=== PATIENT | female | born 1965 | race Caucasian/White ===

== ENCOUNTER 2024-05-07 18:16 | Outpatient (REF) | payer BC, SELFPAY ==
[2024-05-07 19:30] LABS: Absolute Basophil Count 0.06 10^3/uL (0.0-0.2); Absolute Eosinophil Count 0.08 10^3/uL (0.0-0.7); Absolute Lymphocyte Count 1.98 10^3/uL (1.2-3.4); Absolute Monocyte Count 0.46 10^3/uL (0.1-0.8); Absolute Neutrophil Count 2.56 10^3/uL (1.2-6.7); Basophils % 1.2 %; Eosinophils % 1.6 %; HCT 41.4 % (36.0-46.0); HGB 13.4 g/dL (11.2-15.7); Lymphocytes % 38.5 %; MCH 32.3 pg (27.0-33.0); MCHC 32.4 % (32.0-36.0); MCV 100 fL (80-95); MPV 10.1 fL (8.0-11.0); Monocytes % 8.9 %; Neutrophils % 49.8 %; Platelet Count 232 10^3/uL (130-400); RBC 4.15 10^6/uL (3.93-5.22); RDW 12.2 % (11.7-14.6); RDW-SD 45.1 fL; WBC 5.14 10^3/uL (4.4-10.8)
[2024-05-07 19:59] LABS: ALT 23 U/L (14-59); AST 18 U/L (15-37); Albumin 4.1 g/dL (3.4-5.0); Alkaline Phosphatase 81 U/L (46-116); Anion Gap 11.1 mmol/L (3-11); BUN 12 mg/dL (7-18); Bilirubin, Total 0.37 mg/dL (0.2-1.0); CO2 26.9 mmol/L (21.0-32.0); CREATININE 1.3 mg/dL (0.55-1.02); Calculated LDL 130 mg/dL (<100); Chloride 102 mmol/L (98-107); Cholesterol 218 mg/dL (<200); Estimated GFR 47.96 (mL/min/1.73m2); Glucose 91 mg/dL (74-106); HDL Cholesterol 50 mg/dL (40-60); Potassium 4.2 mmol/L (3.5-5.1); Sodium 140 mmol/L (136-145); TSH (W/Ref FT4) 1.38 uIU/mL (0.36-3.74); Total Protein 7.6 g/dL (6.4-8.2); Triglyceride 190 mg/dL (<150); Vitamin D 25 Total 29.3 ng/mL (30-100)
[2024-05-07 20:14] LABS: Hemoglobin A1C 5.7 % (<5.7)
== END 2024-05-07 18:17 | disposition home or self-care (01) ==
LOC: NCHCN 18:16
PROVIDERS: Visit Provider Nurse Practitioner Family
DX: R41.89 Other symptoms and signs involving cognitive functions and awareness (principal)
CPT/HCPCS: 80053; 80061; 82306; 83036; 84443; 85025

== ENCOUNTER 2024-06-28 15:59 | Outpatient (REF) | payer BC, SELFPAY ==
[2024-06-28 19:49] LABS: Anion Gap 9.1 mmol/L (3-11); BUN 13 mg/dL (7-18); CO2 27.9 mmol/L (21.0-32.0); Calcium 8.9 mg/dL (8.5-10.1); Chloride 107 mmol/L (98-107); Estimated GFR 65.71 (mL/min/1.73m2); Folate 8.8 ng/mL (8.6-20.0); Glucose 104 mg/dL (74-106); Magnesium 2.2 mg/dL (1.8-2.4); Potassium 4.3 mmol/L (3.5-5.1); Sodium 144 mmol/L (136-145); Vitamin B12 217 pg/mL (193-986)
== END 2024-06-28 16:00 | disposition home or self-care (01) ==
LOC: NCHCN 15:59
PROVIDERS: Visit Provider Nurse Practitioner Family
DX: R79.89 Other specified abnormal findings of blood chemistry (principal); Z87.820 Personal history of traumatic brain injury
CPT/HCPCS: 80048; 82607; 82746; 83735

== ENCOUNTER 2025-04-11 10:51 | Outpatient (REF) | payer BC, SELFPAY ==
[2025-04-11 16:40] LABS: Vitamin B12 408 pg/mL (193-986); Vitamin D 25 Total 46 ng/mL (30-100)
[2025-04-11 16:44] LABS: Hemoglobin A1C 5.4 % (<5.7)
[2025-04-12 09:42] LABS: Hepatitis C Ab w Rflx HCV PCR Negative (Negative)
[2025-04-12 09:57] LABS: HIV-1/2 Ag & Ab Screen Negative (Negative)
== END 2025-04-11 10:52 | disposition home or self-care (01) ==
LOC: NCHCN 10:51
PROVIDERS: PCP Nurse Practitioner Family; Visit Provider Nurse Practitioner Family
DX: R73.03 Prediabetes (principal); Z00.00 Encounter for general adult medical examination without abnormal findings; G44.229 Chronic tension-type headache, not intractable
CPT/HCPCS: 82306; 86803; 87389; 82607; 83036

== ENCOUNTER 2025-08-22 11:50 | Outpatient (REF) | payer BC, SELFPAY ==
[2025-08-22 16:42] LABS: Anion Gap 8.5 mmol/L (3-11); BUN 13 mg/dL (9-23); CO2 25.5 mmol/L (20.0-31.0); Calcium 9.3 mg/dL (8.3-10.6); Chloride 109 mmol/L (98-107); Glucose 93 mg/dL (74-106); Potassium 4.3 mmol/L (3.5-5.1); Sodium 143 mmol/L (136-145)
== END 2025-08-22 11:51 | disposition home or self-care (01) ==
LOC: NCHCN 11:50
PROVIDERS: PCP Nurse Practitioner Family; Visit Provider Nurse Practitioner Family
DX: R19.7 Diarrhea, unspecified (principal)
CPT/HCPCS: 80048

== ENCOUNTER 2025-08-23 14:54 | Outpatient (REF) | payer BC, SELFPAY ==
[2025-08-25 11:32] LABS: Campylobacter PCR Negative (Negative); Shiga Toxin PCR Negative (Negative); Shigella/Enteroinvasive Ecoli Negative (Negative)
== END 2025-08-23 14:55 | disposition home or self-care (01) ==
LOC: NCHCN 14:54
PROVIDERS: PCP Nurse Practitioner Family; Visit Provider Nurse Practitioner Family
DX: R19.7 Diarrhea, unspecified (principal)
CPT/HCPCS: 87505